=== PATIENT | female | born 1965 | race Caucasian/White ===

== ENCOUNTER 2021-12-12 17:39 | Outpatient (CLI) | payer BC, SELFPAY ==
--- NOTE | 2021-12-12 18:00 | CRLHL7_ITS ---
For Patients: As a result of the Century Cures Act, medical imaging exams and procedure reports are released immediately into your electronic medical record. You may view this report before your referring provider. If you have questions, please contact your health care provider. BILATERAL SCREENING MAMMOGRAM WITH COMPUTER-AIDED DETECTION AND TOMOSYNTHESIS TECHNIQUE: CC and MLO views were obtained. These mammographic images have been obtained using full-field digital technique. These mammographic images were interpreted with the benefit of computer-aided detection. Breast Tomosynthesis was used in this interpretation. COMPARISON FILM: 09/08/20, 09/08/19, 07/03/18 FINDINGS: There are scattered areas of fibroglandular density IMPRESSION: There is no radiographic evidence for malignancy. ASSESSMENT: BI-RADS Category 1: Negative RECOMMENDATION: Routine screening mammogram in 1 year. A lay language report of this examination will be provided to the patient. William Barrow M.D. Diagnostic/Musculoskeletal Radiologist [email or web address] LISA/neda Transcribed: 2:10 p.m. PT/Dictated by: William Barrow MD @ 12/13/2021 8:16:00 AM (Electronically Signed)
== END 2021-12-12 17:40 | disposition home or self-care (01) ==
LOC: MAMMO 17:40
PROVIDERS: Visit Provider Obstetrics & Gynecology
DX: Z12.31 Encounter for screening mammogram for malignant neoplasm of breast (principal)
CPT/HCPCS: 77063; 77067

== ENCOUNTER 2024-01-16 08:51 | Outpatient (CLI) | payer BC, SELFPAY ==
--- OUTSIDE RECORDS SUMMARY | 2024-01-16 08:55 | XMS_ITS | Clinical Summary ---
Author Organization [facility] Address [address] [place] [address] Care Team Providers Care Nurse Care Manager Name Role Phone Tevin Barba P.A.-C. Primary Care Provider Source Comments Patient records contain information from all sites at [facility]. For routine questions regarding patient records, call [phone] during business hours, M-F 8:00 AM - 5:00 PM Central Time. Record requests for emergency care only can be directed to [phone] at any time.[facility] Allergies Active Allergy Reactions Criticality Noted Date Comments Iodine Anxiety,Hives (Reselect Reaction),Itching,P alpitations,Rash,Sh ortness of breath (Reselect Reaction) 05/16/1992 Nitrofurantoin Macrocrystal Anaphylaxis,Anxiety ,Hives (Reselect Reaction),Itching,P alpitations,Rash,Sh ortness of breath (Reselect Reaction) Nitrofurantoin Shortness of breath (Reselect Reaction) High 02/02/2021 Neomycin-Polymyxin B-Dexameth Rash,Edema (Reselect Reaction) 06/14/2020 Shellfish Containing Products Other (see comments) 06/13/2020 Anxiety, hives, itching,rash, shortness of breath Shellfish Derived Other (see comments) 06/13/2020 Anxiety, hives, itching,rash, shortness of breath Medications Medication Sig Dispensed Refills Start Date End Date Status azelaic acid (FINACEA) 15 % gel 01/18/2022 Active ibuprofen (ADVIL,MOTRIN) 200 mg tablet Take 600 mg by mouth. 01/26/2022 Active ketoconazole (NIZORAL) 2 % cream WASH TO AFFECTED AREA APPLY TO AFFECTED AREA OF BODY TWICE A DAY UNTIL RESOLVED 05/08/2022 Active clobetasoL (TEMOVATE) 0.05 % ointment APPLY TO VAGINAL AREA 1-2X DAILY FOR UP TO 2 WEEKS PER MONTH NEEDED 08/07/2022 Active DME CPAPIndications:Apne a Sleep Obstructive DME Order. ResMed S11 1 each 11 11/06/2022 Active lisinopriL 5 mg tablet Take 1 tablet (5 mg total) by mouth daily. 90 tablet 3 10/31/2023 Active famotidine (Pepcid) 40 mg tablet Take 1 tablet (40 mg total) by mouth 2 (two) times a day. 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 If stable, she could have follow-up thereafter every 12 months. 2. She should work with her local physician for a baseline 24 urine calcium measurement. If elevated, consultation with Nephrology would be indicated regarding treatment of hypercalciuria to avoid risk of kidney stone disease going forward. As above, hypercalciuria would be an indication for consideration of parathyroidectomy. 3. I discussed with her that her bone mineral density is unremarkable, with lowest bone mineral density T-score -1.0 which is at the crossroads of normal versus beginning of osteopenia. Recommended a repeat bone mineral density in 2 years time. Hypertension Essential Primary 01/02/2017 Varicose Vein Lower Extremity With Pain Bilatera l 10/06/2014 Gastroesophageal Reflux Disease Without Esophagi tis 12/23/2013 Apnea Sleep Obstructive 12/22/2013 Bundle Branch Block Bifascicular 10/06/2013 Resolved Problems Problem Noted Date Diagnosed Date Resolved Date Nodule Thyroid 11/17/2019 10/31/2023 Abdominal Pain 04/02/2019 05/24/2021 Hypercalcemia 03/03/2019 10/31/2023 Hypertension Essential Primary 10/06/2013 02/14/2018 Overview (09/04/2016): Hypertension HTN NOS Graves' Disease 10/06/2013 10/31/2023 Pityriasis Versicolor 01/21/20122018 Encounters Date Type Department Care Team Description 01/06/2024 4:00 PM CDT Nurse Only Department of Family Medicine, [facility], in [place], [place] [address] [place] [address] Ruth Salgado L.P.N. Nurse Visit (Nurse only 2nd Hep B vaccine) 12/02/2023 Orders Only Department of Family Medicine, [facility], [place], [place] [address] [place] [address] Marta Rome P.A.-C., M.S. Exposure Rabies (Primary Dx) 10/31/2023 8:28 AM CDT - 10/31/2023 11:59 PM CDT Hospital Encounter Department of Laboratory Medicine in [address] [address] Tevin Barba P.A.-C. Hypertension Essential Primary; Screening Examination Diabetes Mellitus; Encounter For Screening For Cardiovascular Disorders Discharge Disposition: Home or Self Care 10/31/2023 8:00 AM CDT Office Visit Department of Family Medicine, [facility], in [address] [address] Tevin Barba P.A.-CYenny Apnea Sleep Obstructive (Primary Dx); Hyperparathyroidism (HCC); Gastroesophageal Reflux Disease Without Esophagitis; Hypertension Essential Primary; Polyp Stomach; Polyp Colon; General Medical Examination Adult; Screening Examination Diabetes Mellitus; Encounter For Screening For Cardiovascular Disorders 10/24/2023 7:47 AM CDT - 10/24/2023 11:59 PM CDT Hospital Encounter Department of Laboratory Medicine in [address] [address] Tevin Barba P.A.-C. Monitoring For Therapeutic Drug Therapy Discharge Disposition: Home or Self Care from Last 3 Months Immunizations Name Administration Dates Next Due DT, Pediatric 06/04/2005 HepB Adult (HEPLISAV-B) 01/06/2024,10/31/2023 Influenza, Injectable, Quadrivalent 12/31/2019 RZV (SHINGRIX) 06/08/2021,12/15/2020 Rabies (Imovax) 12/20/2022, 3,12/09/2022,2022 Tdap 08/30/2014 influenza trivalent vaccine (6 months and older)(PF) 01/06/2024 influenza vaccine quad (FLUZONE/FLUARIX) (6 months and older)(PF) 02/16/2022,03/13/2021,06/15/2019 Family History Medical History Relation Name Comments Prostate cancer Father Dick Kim Hyperlipidemia Mother Shaina Kim Hypertension Mother Shaina Kim Psoriasis Mother Shaina Kim Hyperlipidemia Sister Mirta Alvarez Relation Name Status Comments Father Dick Kim Mother Shaina Alvarez Social History Tobacco Use Types Packs/Day Years Used Date Smoking Tobacco: Never Smokeless Tobacco: Never Tobacco Cessation:Counseling Given: Not Answered Alcohol Use Standard Drinks/Week Comments Yes 1 (1 standard drink = 0.6 oz pur e alcohol) social Humiliation, Afraid, Rape, and Kick questionnair e Answer Date Recorded Within the last year, have y ou been afraid of your partner or ex-partner? No 05/22/2021 Within the last year, have y ou been humiliated or emotionally abused in other ways by your partner or ex-partner? No Within the last year, have y ou been kicked, hit, slapped, or otherwise physically hurt by your partner or ex-partner? No 05/22/2021 Within the last year, have y ou been raped or forced to have any kind of sexual activity by your partner or ex-partner? No 05/22/2021 Social Connection and Isolat ion Panel [NHANES] Answer Date Recorded In a typical week, how many times do you talk on the phone with family, friends, or neighbors? More than three times a week 05/22/2021 How often do you get togethe r with friends or relatives? Three times a week 05/22/2021 How often do you attend chur or latter-day services? 1 to 4 times per year 05/22/2021 Do you belong to any clubs o r organizations such as bahai groups, unions, fraternal or athletic groups, or school groups? Yes 05/22/2021 How often do you attend meet ings of the clubs or organizations you belong to? More than 4 times per year 05/22/2021 Are you , , di vorced, , never , or living with a partner? 05/22/2021 AUDIT-C Answer Date Recorded Q1: How often do you have a drink containing alc ohol? Monthly or less 05/22/2021 Q2: How many drinks containi ng alcohol do you have on a typical day when you are drinking? 1 or 2 05/22/2021 Q3: How often do you have si x or more drinks on one occasion? Never 05/22/2021 Overall Financial Resource Strain (CARDIA) Answe r Date Recorded How hard is it for you to pa y for the very basics like food, housing, medical care, and heating? Not hard at all 01/15/2023 PHQ-2 Answer Date Recorded PHQ-2 Score 0 10/31/2023 [employer] [facility]ational Stress Questionnaire Answer Date Recorded Do you feel stress - tense, restless, nervous, or anxious, or unable to sleep at night because your mind is troubled all the time - these days? Only a little 05/22/2021 Exercise Vital Sign Answer Date Recorde d On average, how many days pe r week do you engage in moderate to strenuous exercise (like a brisk walk)? 1 day 01/15/2023 On average, how many minutes do you engage in exercise at this level? 30 min 01/15/2023 Hunger Vital Sign Answer Date Recorded Within the past 12 months, y ou worried that your food would run out before you got the money to buy more. Never true 01/16/20 23 Within the past 12 months, t he food you bought just didn't last and you didn't have money to get more. Never true 01/15/2023 PRAPARE - Transportation Answer Date Re corded In the past 12 months, has l ack of transportation kept you from medical appointments or from getting medications? No 06/2022 In the past 12 months, has l ack of transportation kept you from meetings, work, or from getting things needed for daily living? No 01/15/2023 Nutrition Answer Date Recorded On average, how many serving s of fruits and vegetables do you eat per day (serving size is equal to 1 cup or approximately the size of a tennis ball)? 3-5 01/15/2023 Dental Answer Date Recorded Dental: Regular Dentist Yes 05/22/19 Employment Answer Date Recorded Employment status Employed and actively working without restrictions 01/15/2023 Housing Stability Answer Date Recorded What is your living situation today? [facility] have [facility] to live 01/15/2023 Education Answer Date Recorded What is the highest level of school you have completed or the highest degree you have received? Master's degree (e.g., MA, MS, Chip, MEd, MATERIALS INSPECTOR, DARYL) 03/03/2019 Sex and Gender Information Value Date Recorded Sex Assigned at Female 05/22/2017 7:48 AM UPWARD BOUND DIRECTOR Gender Identity Female 05/22/2017 7:48 AM UPWARD BOUND DIRECTOR Sexual Orientation Straight 03/07/2021 12 :04 PM UPWARD BOUND DIRECTOR Last Filed Vital Signs Vital Sign Reading Time Taken Comments Blood Pressure 133/89 10/31/2023 7:41 AM CDT Pulse 70 10/31/2023 7:41 AM CDT Temperature 36.2 ??C (97.2 ??F) 10/31/2023 7:41 AM CD T Respiratory Rate 16 10/31/2023 7:41 AM CDT Oxygen Saturation 96% 04/02/2023 7:38 AM UPWARD BOUND DIRECTOR Inhaled Oxygen Concentration - - Weight 93.6 kg (206 lb 3.9 oz) 10/31/2023 7:41 A M CDT Height 162.7 cm (5' 4.06) 10/31/2023 7:41 AM CD T Body Mass Index 35.34 10/31/2023 7:41 AM CDT Plan of Treatment Health Maintenance Due Date Last Done Comments CT Colonography 1965 Cologuard 1965 HIV Screening 1965 Hepatitis C Screening 1965 Mammogram 07/04/2019 07/03/2018 (Perf ormed elsewhere), 07/02/2017 (Performed elsewhere), 11/27/2013 (Performed elsewhere) COVID-19 Vaccine ( season) 2023 03/15/2021, 07/21/2020, 06/23/2020 DTaP,Tdap,and Td Vaccines (3 - Td or Tdap) 08/30/2024 08/30/2014, 06/04/2005 Creatinine Level (Kidney Function Test) 10/23/2024 10/24/2023, 10/04/2022, 01/19/2022, Additional history exists Potassium Level 10/23/2024 10/24/2023, 09/14, 01/19/2022, Additional history exists Sodium Level 10/23/2024 10/24/2023, 09/14, 01/19/2022, Additional history exists Office Visit for Blood Pressure Check / Re-check 10/30/2024 10/31/2023 Visit: Chronic Disease, age 18+ 10/30/2024 10/31/2023 Cervical Cancer Screening 09/07/20262021, 11/28/2020 (Performed elsewhere), 09/12/2016 (Performed elsewhere), Additional history exists Fasting Glucose for Diabetes Screening 10/23/2026 10/24/2023, 10/04/2022, 01/19/2022, Additional history exists Colonoscopy 03/27/2028 03/27/2023, 03/15, 02/02/2016, Additional history exists Colorectal Cancer Surveillance 03/27/2028 Lipid (Cholesterol) Screening 10/30/2028 10/31/2023, 10/04/2022, 05/22/2021, Additional history exists Zoster Vaccines Completed 06/08/2021, 12/15/2020 Depression Screening (Annual PHQ-2) Completed 10/31/2023, 10/31/2023 Hepatitis B Vaccines Completed 01/06/2024, 10/31/19 Influenza Vaccine Completed 01/06/2024, , 03/13/2021, Additional history exists Pneumococcal vaccine (0-64 years) Aged Out No longer eligible based on patient's age to complete this topic Medical Devices Implanted Type Area Bobbin Coil Winder Device Identifier Shelf Expiration Date Model / Serial / Lot Clp [facility] - [id number] Implanted:Qty : 1 on 06/26/2019 by Vincent Leahy M.D., Ph.D. at [facility] Colon/Gonda Hardware e.g. pins/screws /rods [employer] [id number] 05/20/2021 [id number] / / [id number] Description:Gastric polpecto my site Clp [facility]sp [facility] - [id number] Implanted:Qty : 1 on 06/26/2019 by Vincent Leahy M.D., Ph.D. at [facility] Colon/Gonda Hardware e.g. pins/screws /rods [employer] [id number] 10/18/2021 [id number] / / [id number] Description:Gastric polpecto my site Mesh Or Patch Mesh or Patch Bladder Description:Bladder sling Procedures Procedure Name Priority Date/Time Associated Diagnosis Comments THYROID FUNCTION CASCADE, S Routine 10/31/2023 8:40 AM CDT Hypertension Essential Primary Screening Examination Diabetes Mellitus Encounter For Screening For Cardiovascular Disorders LIPID PANEL, S Routine 10/31/2023 8:40 AM CDT Hypertension Essential Primary Screening Examination Diabetes Mellitus Encounter For Screening For Cardiovascular Disorders BASIC METABOLIC PANEL, S/P Routine 10/24/2023 7:56 AM CDT Monitoring For Therapeutic Drug Therapy COLONOSCOPY RESTRICTED Routine 03/27/2023 7:38 AM UPWARD BOUND DIRECTOR Polyp Stomach Gastroesophageal Reflux Disease Without Esophagitis from Last 3 Months or Most Recently Relevant to Health Maintenance Results * (ABNORMAL) Lipid Panel (10/31/2023 8:40 AM CDT) Triglycerides 135 mg/dL 10/31/2023 1:39 PM CDT OWAT Comment: ----REFERENCE VALUE---- Normal: <150 mg/dL Borderline High: 150-199 mg/dL High: 200-499 mg/dL Very High: > or =500 mg/dL Cholesterol, Total 219(H) mg/dL 2023 1:39 PM CDT OWAT Comment: ----REFERENCE VALUE---- Desirable: < 200 mg/dL Borderline High: 200 - 239 mg/dL High: > or = 240 mg/dL Cholesterol, LDL, Calculated 149(H) mg/dL 10/31/2023 1:39 PM CDT OWAT Comment: ----REFERENCE VALUE---- Desirable: <100 mg/dL Above Desirable: 100-129 mg/dL Borderline High: 130-159 mg/dL High: 160-189 mg/dL Very High: >=190 mg/dL ----ADDITIONAL INFORMATION---- LDL cholesterol calculated using the Galloway/NIH equation. Cholesterol, HDL 46(L) >=50 mg/dL 10/31/19 1:39 PM CDT OWAT Cholesterol, Non-HDL, Calculated 173(H) mg/dL 10/31/2023 1:39 PM CDT OWAT Comment: ----REFERENCE VALUE---- Desirable: <130 mg/dL Above Desirable: 130-159 mg/dL Borderline High: 160-189 mg/dL High: 190-219 mg/dL Very High: > or =220 mg/dL Fasting (8 HR or more) Yes 10/31/2023 8:40 AM CDT OWAT Blood (Blood, Venous) 10/31/2023 8:40 AM CDT 10/31/2023 12:47 PM CDT Tevin Barba P.A.-C. LAB BLOOD ADD- ON [facility] [address] [place] [address], [facility] OWAT [facility] in [place] [address] [place] [address] * Thyroid Function Beebe (10/31/2023 8:40 AM CDT) TSH, Sensitive 1.5 0.3 - 4.2 mIU/L 10/31/2023 1:29 PM CDT OWAT Blood (Blood, Venous) 10/31/2023 8:40 AM CDT 10/31/2023 12:47 PM CDT Tevin Barba P.A.-C. LAB BLOOD ADD- ON [facility] [address] [place] [address], [place] OWAT [facility] in [place] [address] [place] [address] * (ABNORMAL) Basic Metabolic Panel (10/24/2023 7:56 AM CDT) Potassium, P 4.8 3.6 - 5.2 mmol/L 10/24/2023 1:30 PM CDT OWAT Sodium, P 144 135 - 145 mmol/L 10/24/2023 1:30 PM CDT OWAT Chloride, P 108(H) 98 - 107 mmol/L 10/24/2023 1:30 PM CDT OWAT Bicarbonate, P 27 22 - 29 mmol/L 10/24/2023 1:30 PM CDT OWAT Anion Gap, P 9 7 - 15 10/24/2023 1:30 PM CDT OWAT BUN (Blood Urea Nitrogen), P 17 6 - 21 mg/dL 10/24/2023 1:30 PM CDT OWAT Creatinine 0.80 0.59 - 1.04 mg/dL 10/24/2023 1:30 PM CDT OWAT Estimated GFR (eGFR) 85 >=60 mL/min/BSA 10/24/2023 1:30 PM CDT OWAT Comment: Estimated GFR calculated using the 2020 CKD_EPI creatinine equation. Calcium, Total, P 9.7 8.6 - 10.0 mg/dL 10/24/2023 1:30 PM CDT OWAT Glucose, P 107 70 - 140 mg/dL 10/24/2023 1:30 PM CDT OWAT Blood (Blood, Venous) 10/24/2023 7:56 AM CDT 10/24/2023 12:55 PM CDT Tevin L Roethler P.A.-C. LAB BLOOD ADD- ON [facility] [address] [place] [address], [place] OWAT [facility] in [place] [address] [place] [address] from Last 3 Months or Most Recently Relevant to Health Maintenance Care Teams Nurse Care Manager Relationship Specialty Start Date End Date Tevin Barba P.A.-C. [address] [place] [phone] PCP - General Family Medicine 12/25/21
--- OUTSIDE RECORDS SUMMARY | 2024-01-16 08:55 | XMS_ITS | Clinical Summary ---
Author Organization [facility] Address [place], [place] [address] Care Team Providers Care Cafe Lead Name Role Phone Tevin Barba Unavailable [phone] Tevin Barba Primary Care Provider [phone] Allergies Active Allergy Reactions Criticality Noted Date Comments Iodine Respiratory Distress 05/06/2015 Nitrofurantoin Shortness Of Breath 08/26/2004 Medications Medication Sig Dispensed Refills Start Date End Date Status hydrochlorothiazide (HCTZ) 25 mg tablet Take 25 mg by mouth once daily. Active omeprazole (PRILOSEC) 10 mg capsule Take 10 mg by mouth once daily before a meal. Active Active Problems Problem Noted Date Diagnosed Date EDI 12/15/2013 AHI-16 12/22/2013 Esophageal reflux 08/26/2004 Allergic rhinitis, cause unspecified 08/26/2004 Family History Medical History Relation Name Comments Cancer-prostate Father Metastisis t o bone GI Disease Mother Pancreatitis fr om gall stones Relation Name Status Comments Father Mother Social History Tobacco Use Types Packs/Day Years Used Date Smoking Tobacco: Never Alcohol Use Standard Drinks/Week Comments Yes 0 (1 standard drink = 0.6 oz pur e alcohol) 2 X a month Sex and Gender Information Value Date Recorded Sex Assigned at Not on file Gender Identity Not on file Sexual Orientation Not on file Obstetrics History Last Filed Vital Signs Vital Sign Reading Time Taken Comments Blood Pressure 144/63 02/02/2016 1:41 PM CDT Pulse 86 02/02/2016 1:41 PM CDT Temperature 37 ??C (98.6 ??F) 06/20/2015 3:54 PM SHOE STITCHER 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 Respiratory Rate 18 06/20/2015 3:54 PM SHOE STITCHER ODD Oxygen Saturation 95% 02/02/2016 1:41 PM CDT Inhaled Oxygen Concentration - - Weight 98.3 kg (216 lb 11.2 oz) 06/20/2015 3:54 PM SHOE STITCHER 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 Height 162.6 cm (5' 4) 09/17/2013 12:0 0 PM CDT Body Mass Index 37.2 09/17/2013 12:00 PM CDT Plan of Treatment Health Maintenance Due Date Last Done Comments Tdap 1976 Depression screening for age 12+ 1977 HIV for age 15-65 1980 BMI (ht and wt on same day) for age 18+ 09/06/1983 Hepatitis C screening for age 18-79 09/06/1983 Tetanus booster 1985 Lipids for age 45-75 2010 Mammogram for age 45-75 2010 Zoster (shingles) series for age 50+ (1 of 2) 09/06/2015 COVID-19 vaccine series (2023- season) 2023 03/15/2021, 07/21/2020, 06/23/2020 Influenza for age 50-64 12/15/2023 Pap test for age 21-65 09/07/2024 , 09/07/2021, 09/12/2016, Additional history exists Colonoscopy through age 75 02/01/202602/01, 02/02/2016, 02/02/2016, Additional history exists Pneumococcal series for age 6-64 Aged Out No longer eligible based on patient's age to complete this topic Procedures Procedure Name Priority Date/Time Associated Diagnosis Comments HPV HIGH RISK Routine 09/07/2021 8:15 AM CDT COLONOSCOPY 02/02/2016 11:32 AM CDT from Last 3 Months or Most Recently Relevant to Health Maintenance Results * HPV HIGH RISK (09/07/2021 8:15 AM CDT) TYPE 16 Negative Negative 09/12/2021 10:40 AM CDT [facility] TYPE 18 Negative Negative 09/12/2021 10:40 AM CDT [facility] OTHER HIGH RISK TYPES Negative Negative 09/12/2021 10:40 AM CDT [facility] Other (Cervical/Vagina l) 09/07/2021 8:15 AM CDT 09/08/2021 7:14 AM CDT Narrative [facility] - 09/12/2021 10:40 AM CDT HPV types 16, 18, 31, 33, 35, 39, 45, 51, 52, 56, 58, 59, 66 and 68 DNA were undetectable or below the pre-set threshold. Methodology: Charla Portia 4800 HPV Test July Bk [facility] [facility] [address] [place] [address], [place] * COLONOSCOPY (02/02/2016 11:32 AM CDT) 02/02/2016 11:3 2 AM CDT Narrative 02/02/2016 11:32 AM CDT Patient Name: Sulema Coleyashlie ?Procedure Date: 02/02/2016 ? Gender: Female ? Date of : 1965 Admit Type: Outpatient ? Procedure: ?Colonoscopy Proceduralist: ?Jose Cruz Taveras [facility] Indications/Pre-Op Diagnosis: Screening for colorectal malignant neoplasm, ?This is the patient's first colonoscopy Medications: ?Midazolam 8 mg IV, Fentanyl 100 micrograms IV ? Procedure Description: ? The patient had risks, benefits and alternatives explained to and gave ? informed consent. The patient had a stable cardiopulmonary status and ? judged an adequate candidate for conscious sedation. ? The colonoscope was passed through the anus and advanced to the cecum, ? identified by appendiceal orifice and ileocecal valve. The colonoscopy ? was performed without difficulty. The patient tolerated the procedure ? well. The quality of the bowel preparation was good. ? Complications: ?No immediate complications. Estimated Blood Loss & Specimen: ? Estimated blood loss: none. Specimen collected - Yes and sent to ? Laboratory ? Findings: ? The perianal and digital rectal examinations were normal. ? The exam was otherwise without abnormality on direct and retroflexion ? views. ? Biopsies for histology were taken with a cold forceps from the ascending ? colon and descending colon for evaluation of microscopic colitis. ? Impressions/Post-Op Diagnosis: ? - The examination was otherwise normal on direct and retroflexion views. ? - Biopsies were taken with a cold forceps from the ascending colon and ? descending colon for evaluation of microscopic colitis. ? - Normal mucosa in the terminal ileum and in the entire examined colon. ? Biopsied. ? Recommendation: ? - Discharge patient to home. ? - Resume previous diet. ? - Continue present medications. ? - Await pathology results. ? - Repeat colonoscopy in 10 years for surveillance. ? Jose Cruz Taveras 02/02/2016 1:36:50 PM This report has been signed electronically. Note Initiated On: 02/02/2016 11:32 AM Procedure Note Jose Cruz Taveras MD - 02/02/2016 1:37 PM CDT Patient Name: Sulema Price Procedure Date: 02/02/2016 Gender: Female Date of : 1965 Admit Type: Outpatient Procedure: Colonoscopy Proceduralist: Jose Cruz Jurado One Indications/Pre-Op Diagnosis: Screening for colorectal malignant neoplasm, This is the patient's first colonoscopy Medications: Midazolam 8 mg IV, Fentanyl 100 microgramsIV Procedure Description: The patient had risks, benefits and alternatives explained to andgave informed consent. The patient had a stable cardiopulmonary status and judged an adequate candidate for conscious sedation. The colonoscope was passed through the anus and advanced to thececum, identified by appendiceal orifice and ileocecal valve. Thecolonoscopy was performed without difficulty. The patient tolerated the procedure well. The quality of the bowel preparation was good. Complications: No immediate complications. Estimated Blood Loss & Specimen: Estimated blood loss: none. Specimen collected - Yes and sent to Laboratory Findings: The perianal and digital rectal examinations were normal. The exam was otherwise without abnormality on direct and retroflexion views. Biopsies for histology were taken with a cold forceps from theascending colon and descending colon for evaluation of microscopic colitis. Impressions/Post-Op Diagnosis: - The examination was otherwise normal on direct and retroflexionviews. - Biopsies were taken with a cold forceps from the ascending colonand descending colon for evaluation of microscopic colitis. - Normal mucosa in the terminal ileum and in the entire examinedcolon. Biopsied. Recommendation: - Discharge patient to home. - Resume previous diet. - Continue present medications. - Await pathology results. - Repeat colonoscopy in 10 years for surveillance. Jose Cruz Taveras, 02/02/2016 1:36:50 PM This report has been signed electronically. Note Initiated On: 02/02/2016 11:32 AM Jose Cruz Taveras MD PROCEDURE ORD from Last 3 Months or Most Recently Relevant to Health Maintenance Advance Directives * Full Code (Latest Code Status on File) Date Activated Date Inactivated Comments 05/06/2015 12:10 PM 05/06/2015 3:42 PM * Full Code Date Activated Date Inactivated Comments 05/06/2015 10:31 AM 05/06/2015 12:10 PM Care Teams Cafe Lead Relationship Specialty Start Date End Date Tevin Barba PA PCP - General Physician Draw End Hand 07/31/21 Tevin Barba PA 09/05/13
--- OUTSIDE RECORDS SUMMARY | 2024-01-16 08:56 | XMS_ITS | Encounter Summary ---
Author Organization [facility] Address [address] [place] [address] Care Team Providers Care Director Safety Name Role Phone Tevin Barba P.A.-C. Primary Care Provider Encounter Details Date Type Department Care Team (Latest Contact Info) Description 10/24/2023 7:47 AM CDT - 10/24/2023 11:59 PM CDT Hospital Encounter Department of Laboratory Medicine in [place], [place] [address] [place] [phone] Tevin Barba P.A.-C. [address] [place] [phone] Monitoring For Therapeutic Drug Therapy Discharge Disposition: Home or Self Care Social History Tobacco Use Types Packs/Day Years Used Date Smoking Tobacco: Never Smokeless Tobacco: Never Alcohol Use Standard Drinks/Week Comments Yes 1 [...] 05/22/2021 How often do you attend chur ch or samaritan services? 1 to 4 times per year 05/22/2021 Do you belong to any clubs o r organizations such as shinto groups, unions, fraternal or athletic groups, or [...] PHQ-2 Answer Date Recorded PHQ-2 Score 0 10/04/2022 [facility] Occupat ional Health - Occupational Stress Questionnaire Answer Date [...] your living situation today? I have a [facility] place to live 01/15/2023 Education Answer Date Recorded What is the highest level of school you have completed or the highest degree you have received? 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 ResMed S11 1 each 11 11/06/2022 ibuprofen (ADVIL,MOTRIN) 200 mg tablet Take 600 mg by mouth. 01/26/2022 ketoconazole (NIZORAL) 2 % cream WASH TO AFFECTED AREA APPLY TO AFFECTED AREA OF BODY TWICE A DAY UNTIL RESOLVED 05/08/2022 calcium phosphate-vitamin D3 125 mg-3.125 mcg (125 unit) tablet,chewable Chew 2 capsules 2 (two) times a day. 10/31/2023 famotidine (Pepcid) 40 mg tablet take one tablet by mouth twice a day 180 tablet 3 10/16/2023 10/31/2023 lisinopriL (PRINIVIL,ZESTRIL) 5 mg tablet take one tablet by mouth every day 90 tablet 3 07/15/2023 10/31/2023 documented as of this encounter Plan of Treatment Not on file documented as of this encounter Procedures Procedure Name Priority Date/Time Associated Diagnosis Comments BASIC METABOLIC PANEL, S/P Routine 10/24/2023 7:56 AM CDT Monitoring For Therapeutic Drug Therapy documented in this encounter Results * (ABNORMAL) Basic Metabolic Panel (10/24/2023 7:56 [...] AM CDT 10/24/2023 12:55 PM CDT Tevin Barba P.A.-C. LAB BLOOD ADD- ON [facility] [address] [place] [address], [facility] [place] [address] [place] [address] documented in this encounter Visit Diagnoses Diagnosis Monitoring For Therapeutic Drug Therapy documented in this encounter Additional Health Concerns Assessment Noted Time PHQ-9 Depression Total Score: 0 05/24/19 18 8:14 AM ETCHER APPRENTICE PHOTOENGRAVING documented as of this encounter Care Teams Director Safety Relationship Specialty Start Date End Date Tevin Barba P.A.-C. [address] [place] [address] [place] [phone] PCP - General Family Medicine 12/25/21 documented as of this encounter
--- OUTSIDE RECORDS SUMMARY | 2024-01-16 08:56 | XMS_ITS | Encounter Summary ---
Author Organization [facility] Address [address] [place] [address] Care Team Providers Care Head Stock Operator Name Role Phone Tevin Barba P.A.-C. Primary Care Provider Reason for Visit * Reason Comments Med Refill Encounter Details Date Type Department Care Team (Late st Contact Info) Description 10/07/2023 Refill Department of Community Internal Medicine in [place], [place] [address] [place] [phone] Leslye Ramirez MPAS, P.A.-C. [address] [place] [phone] Med Refill Social History Tobacco Use Types Packs/Day Years [...] How often do you attend chur or hindu services? 1 to 4 times per year 05/22/2021 Do you belong to any clubs o r organizations such as anabaptism groups, unions, fraternal or athletic groups, or [...] Answer Date Recorded PHQ-2 Score 0 10/31/2023 [facility] of Occupat ional Health - Occupational Stress [...] money to buy more. Never true 01/16/20 Within the past 12 months, t he [...] your living situation today? I have a [facility] place to live 01/15/2023 Education Answer Date Recorded What is the highest level of school you have completed or the highest degree you have received? Master's degree (e.g., MA, MS, Chip, MEd, APPLICATION PROGRAMMER ANALYST, DARYL) 03/03/2019 Sex and Gender Information Value Date Recorded Sex Assigned at Female 05/22/2017 7:48 AM PRODUCTION DEPARTMENT SUPERVISOR Gender Identity Female 05/22/2017 7:48 AM PRODUCTION DEPARTMENT SUPERVISOR Sexual Orientation Straight 03/07/2021 12 :04 PM PRODUCTION DEPARTMENT SUPERVISOR documented as of this encounter Plan of Treatment Not on file documented as of this encounter Visit Diagnoses Diagnosis Apnea Sleep Obstructive documented in this encounter Additional Health Concerns Assessment Noted Time PHQ-9 Depression Total Score: 0 05/24/19 18 8:14 AM PRODUCTION DEPARTMENT SUPERVISOR documented as of this encounter Care Teams Head Stock Operator Relationship Specialty Start Date End Date Tevin Barba P.A.-C. [address] [facility] [place] [phone] PCP - General Family Medicine 12/25/21 documented as of this encounter
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
--- OUTSIDE RECORDS SUMMARY | 2024-01-16 08:56 | XMS_ITS | Encounter Summary ---
Author Organization [facility] Address [address] [place] [address] Care Team Providers Care Gunstock Repairer Name Role Phone Tevin Barba P.A.-C. Primary Care Provider Encounter Details Date Type Department Care Team (Latest Contact Info) Description 10/31/2023 8:28 AM CDT - 10/31/2023 11:59 PM CDT Hospital Encounter Department of Laboratory Medicine in [place], [place] [address] [place] [address] Tevin Barba PPhoebe [address] [place] [phone] Hypertension Essential Primary; Screening Examination Diabetes Mellitus; Encounter For Screening For Cardiovascular Disorders Discharge Disposition: Home or Self Care Social [...] How often do you attend chur or zoroastrian services? 1 to 4 times per year 05/22/2021 Do you belong to any clubs o r organizations such as restorationist groups, unions, fraternal or athletic groups, or [...] Answer Date Recorded PHQ-2 Score 0 10/31/2023 [facility] [place] of Occupat ional Health - Occupational Stress [...] your living situation today? I have a [facility] to live 01/15/2023 Education Answer Date Recorded What is the highest level of school you have completed or the highest degree you have received? Master's degree (e.g., MA, MS, Chip, MEd, CHILD NUTRITION ASSISTANT, DARYL) 03/03/2019 Sex and Gender Information Value Date Recorded Sex Assigned at Female 05/22/2017 7:48 AM PIANOS AND ORGANS SALESPERSON Gender Identity Female 05/22/2017 7:48 AM PIANOS AND ORGANS SALESPERSON Sexual Orientation Straight 03/07/2021 12 :04 PM PIANOS AND ORGANS SALESPERSON documented as of this encounter Medications at Time of Discharge Medication Sig Dispensed Refills Start Date End Date azelaic acid (FINACEA) 15 % gel 01/18/2022 clobetasoL (TEMOVATE) 0.05 % ointment APPLY TO VAGINAL AREA 1-2X DAILY FOR UP TO 2 WEEKS PER MONTH NEEDED 08/07/2022 DME CPAPIndications:Apnea Sleep Obstructive DME Order. ResMed S11 1 each 11 11/06/2022 famotidine (Pepcid) 40 mg tablet Take 1 tablet (40 mg total) by mouth 2 (two) times a day. 180 tablet 3 10/31/2023 ibuprofen (ADVIL,MOTRIN) 200 mg tablet Take 600 mg by mouth. 01/26/2022 ketoconazole (NIZORAL) 2 % cream WASH TO AFFECTED AREA APPLY TO AFFECTED AREA OF BODY TWICE A DAY UNTIL RESOLVED 05/08/2022 lisinopriL 5 mg tablet Take 1 tablet (5 mg total) by mouth daily. 90 tablet 3 10/31/2023 documented as of this encounter Plan of Treatment Not on file documented as of this encounter Procedures Procedure Name Priority Date/Time Associated Diagnosis Comments LIPID PANEL, S Routine 10/31/2023 8:40 AM CDT Hypertension Essential Primary Screening Examination Diabetes Mellitus Encounter For Screening For Cardiovascular Disorders THYROID FUNCTION CASCADE, S Routine 10/31/2023 8:40 AM CDT Hypertension Essential Primary Screening Examination Diabetes Mellitus Encounter For Screening For Cardiovascular Disorders documented in this encounter Results * Thyroid Function [place] (10/31/2023 8:40 AM CDT) TSH, Sensitive 1.5 0.3 - 4.2 mIU/L 10/31/2023 1:29 PM CDT OWAT Blood (Blood, Venous) 10/31/2023 8:40 AM CDT 10/31/2023 12:47 PM CDT Tevin Barba P.A.-C. LAB BLOOD ADD- ON [facility] [address] [place] [address], [facility] OWAT [facility] [address] [place] [address] * (ABNORMAL) Lipid Panel (10/31/2023 8:40 AM [...] Tevin Barba P.A.-C. LAB BLOOD ADD- ON [facility] [address] [place] [address], [facility] OW[facility] [place] [address] [place] [address] documented in this encounter Visit Diagnoses Diagnosis Hypertension Essential Primary Screening Examination Diabetes Mellitus Encounter For Screening For Cardiovascular Disorders documented in this encounter Additional Health Concerns Assessment Noted Time PHQ-9 Depression Total Score: 0 05/24/19 18 8:14 AM PIANOS AND ORGANS SALESPERSON documented as of this encounter Care Teams Gunstock Repairer Relationship Specialty Start Date End Date Tevin Barba P.A.-C. [address] [place] [address] [place] [phone] PCP - General Family Medicine 12/25/21 documented as of this encounter
--- OUTSIDE RECORDS SUMMARY | 2024-01-16 08:56 | XMS_ITS | Encounter Summary ---
Author Organization [facility] Address [address] [place] [address] Care Team Providers Care Control Valve Mechanic Name Role Phone Tevin BarbaAYenny-Dequan Primary Care Provider Reason for Visit * Reason Comments Med Refill Encounter Details Date Type Department Care Team (Late st Contact Info) Description 10/15/2023 Refill Department of Family Medicine, [facility], in [place], [place] [address] [place] [address] Tevin Barba, PYennyAYenny-CYenny [address] [place] [phone] Med Refill Social History Tobacco Use Types [...] How often do you attend chur or nondenominational services? 1 to 4 times per year 05/22/2021 Do you belong to any clubs o r organizations such as hoahaoism groups, unions, fraternal or athletic groups, or [...] Answer Date Recorded PHQ-2 Score 0 10/04/2022 [facility] of Occupat ional Health - Occupational Stress [...] your living situation today? I have a [facility] place to live 01/15/2023 Education Answer Date Recorded What is the highest level of school you have completed or the highest degree you have received? Master's degree (e.g., MA, MS, Chip, MEd, ELECTRONIC GAMING DEVICE SUPERVISOR, DARYL) 03/03/2019 Sex and Gender Information Value Date Recorded Sex Assigned at Female 05/22/2017 7:48 AM RESOLUTION EXPERT Gender Identity Female 05/22/2017 7:48 AM RESOLUTION EXPERT Sexual Orientation Straight 03/07/2021 12 :04 PM RESOLUTION EXPERT documented as of this encounter Plan of Treatment Not on file documented as of this encounter Visit Diagnoses Not on filedocumented in this encounter Additional Health Concerns Assessment Noted Time PHQ-9 Depression Total Score: 0 05/24/19 18 8:14 AM RESOLUTION EXPERT documented as of this encounter Care Teams Control Valve Mechanic Relationship Specialty Start Date End Date Tevin Barba P.A.-C. [address] [facility] [place] [phone] PCP - General Family Medicine 12/25/21 documented as of this encounter
--- OUTSIDE RECORDS SUMMARY | 2024-01-16 08:56 | XMS_ITS | Referral Summary ---
Author Organization [facility] Address [address] [place] [address] Care Team Providers Care Inspector Type Name Role Phone Tevin Barba P.A.-C. Primary Care Provider Source Comments Patient records contain information from all sites at [facility]. For routine questions regarding patient records, call [phone] during business hours, M-F 8:00 AM - 5:00 PM Central Time. Record requests for emergency care only can be directed to [phone] at any time.[facility] Encounters Date Type Department Care Team Description 01/06/2024 4:00 PM CDT Nurse Only Department of Family Medicine, [facility], in [place], [place] [address] [place] [phone] Ruth Salgado L.PYennyN. Nurse Visit (Nurse only 2nd Hep B vaccine) 12/02/2023 Orders Only Department of Family Medicine, [facility], in [place], [place] [address] [place] [phone] Marta Rome P.A.-C., M.S. Exposure Rabies (Primary Dx) 10/31/2023 8:28 AM CDT - 10/31/2023 11:59 PM CDT Hospital Encounter Department of Laboratory Medicine in [place], [place] [address] [place] [address] Tevin Barba P.A.-CYenny Hypertension Essential Primary; Screening Examination Diabetes Mellitus; Encounter For Screening For Cardiovascular Disorders Discharge Disposition: Home or Self Care 10/31/2023 8:00 AM CDT Office Visit Department of Family Medicine, [facility], in [address] [phone] Tevin Barba P.A.-CYenny Apnea Sleep Obstructive (Primary Dx); Hyperparathyroidism (HCC); Gastroesophageal Reflux Disease Without Esophagitis; Hypertension Essential Primary; Polyp Stomach; Polyp Colon; General Medical Examination Adult; Screening Examination Diabetes Mellitus; Encounter For Screening For Cardiovascular Disorders 10/24/2023 7:47 AM CDT - 10/24/2023 11:59 PM CDT Hospital Encounter Department of Laboratory Medicine in [address] [phone] Tevin Barba, P.A.-CYenny Monitoring For Therapeutic Drug Therapy Discharge Disposition: Home or Self Care from Last 3 Months Allergies Active Allergy Reactions Criticality Noted Date [...] primary hyperparathyroidism I would recommend the followin. nail expert fasting but hydrated total serum calcium at [...] Graves' Disease 10/06/2013 10/31/2023 Pityriasis Versicolor 01/21/20122018 Immunizations Name Administration Dates Next Due DT, Pediatric 06/04/2005 HepB Adult (HEPLISAV-B) 01/06/2024,10/31/2023 Influenza, Injectable, Quadrivalent 12/31/2019 RZV (SHINGRIX) 06/08/2021,12/15/2020 Rabies (Imovax) 12/20/2022, 3,12/09/2022,2022 Tdap 08/30/2014 influenza trivalent vaccine (6 months and older)(PF) 01/06/2024 influenza vaccine quad (FLUZONE/FLUARIX) (6 months and older)(PF) 02/16/2022,03/13/2021,06/15/2019 Social History Tobacco Use Types Packs/Day Years [...] week 05/22/2021 How often do you attend [facility] or mandaen services? 1 to 4 times per year 05/22/2021 Do you belong to any clubs o r organizations such as taoist groups, unions, fraternal or athletic groups, or [...] your living situation today? I have a [facility] place to live 01/15/2023 Education Answer Date Recorded What is the highest level of school you have completed or the highest degree you have received? Master's degree (e.g., MA, MS, Chip, MEd, GAS STATION SERVICE ATTENDANT, DARYL) 03/03/2019 Sex and Gender Information Value Date Recorded Sex Assigned at Female 05/22/2017 7:48 AM SAFETY DEPOSIT BOXES CUSTODIAN Gender Identity Female 05/22/2017 7:48 AM SAFETY DEPOSIT BOXES CUSTODIAN Sexual Orientation Straight 03/07/2021 12 :04 PM SAFETY DEPOSIT BOXES CUSTODIAN Last Filed Vital Signs Vital Sign Reading Time Taken Comments Blood Pressure 133/89 10/31/2023 7:41 AM CDT Pulse 70 10/31/2023 7:41 AM CDT Temperature 36.2 ??C (97.2 ??F) 10/31/2023 7:41 AM CD T Respiratory Rate 16 10/31/2023 7:41 AM CDT Oxygen Saturation 96% 04/02/2023 7:38 AM SAFETY DEPOSIT BOXES CUSTODIAN Inhaled Oxygen Concentration - - Weight 93.6 kg (206 lb 3.9 oz) 10/31/2023 7:41 A M CDT Height 162.7 cm (5' 4.06) 10/31/2023 7:41 AM CD T Body Mass Index 35.34 10/31/2023 7:41 AM CDT Plan of Treatment Not on file Medical Devices Implanted Type Area Bone Density Technician Device Identifier Shelf Expiration Date Model / Serial / Lot Clp Rsp Hmst Endo 235 - [id number] Implanted:Qty : 1 on 06/26/2019 by Vincent Leahy M.D., Ph.D. at [facility] Hardware e.g. pins/screws /rods [employer] [id number] 05/20/2021 [id number] / / [id number] Description:Gastric polpecto my site Clp Rsp Hmst Endo 235 - [id number] Implanted:Qty : 1 on 06/26/2019 by Vincent Leahy M.D., Ph.D. at [facility] Hardware e.g. pins/screws /rods [employer] [id number] 10/18/2021 [id number] / / [id number] Description:Gastric polpecto my site Mesh Or Patch [...] Therapy COLONOSCOPY RESTRICTED Routine 03/27/2023 7:38 AM SAFETY DEPOSIT BOXES CUSTODIAN Polyp Stomach Gastroesophageal Reflux Disease Without Esophagitis [...] Tevin Barba P.A.-C. LAB BLOOD ADD- ON Performing Organization Address City/[facility]/ZIP Co de Phone Number [facility] [address] [place] [address], [place] [facility] [place] [address] [place] [address] * Thyroid Function [place] (10/31/2023 8:40 AM CDT) TSH, Sensitive 1.5 0.3 - 4.2 mIU/L 10/31/2023 1:29 PM CDT [facility] Blood (Blood, Venous) 10/31/2023 8:40 AM CDT 10/31/2023 12:47 PM CDT Tevin Barba P.A.-C. LAB BLOOD ADD- ON Performing Organization Address [facility]/ZIP Co de Phone Number [facility] [address], [place] [address], [place] [facility] [place] [address] [place] [address] * (ABNORMAL) Basic Metabolic Panel (10/24/2023 7:56 [...] Tevin Barba P.A.-C. LAB BLOOD ADD- ON [facility] [address] [place] [address], [place] [facility] [facility] [place] [address] [place] [address] from Last 3 Months or Most Recently Relevant to Health Maintenance Administered Medications Care Teams Inspector Type Relationship Specialty Start Date End Date Tevin Barba P.A.-C. [address] [place] [phone] PCP - General Family Medicine 12/25/21
--- OUTSIDE RECORDS SUMMARY | 2024-01-16 08:56 | XMS_ITS | Continuity of Care Document ---
Author Organization [facility] Address [address] [place] [address] [address] [place] [address] Phone Care Team Providers Care [employer] Name Role Phone Harpreet De Jesus MD Unavailable Unavailable Procedures Procedure Date Office consultation, moderate August- 6 Advance Directives Directive Yes / No Effective Date File Name No Information Encounters Encounter Description Practice Location Reason(s) For Visit Diagnoses Date Provider Providers Copied on Encounter Office consultation, moderate [facility], [address] [place], [place] [address], [place], [address], [place] tel:[phone] [facility] No Information 6 Liza Mullins. [facility], [address] [place] [address] [address], [place], [place], [id number], [place]. tel:[phone] Referring Provider: Mabel Vines, [address], [address]. tel:[phone] Family History Family Member Type Diagnosis Age At Onset No Information Payers Payer name Insurance type Covered libertarian ID Authoriza tion(s) [employer] CI [id number] Social History Type Description Quantity Date Captured Comments Sex Female Smoking Status No Information Chief Complaint And Reason For Visit No Information Reason For Referral Reason For Referral No Information History Of Present Illness Encounter Date Complaint History Of Prese nt Illness No Information Functional Status Date Functional Assessmen t No Information Instructions Date Instruction Additional Infor mation No Information Assessments Type Assessment Date No Information Patient Care Teams Name Effective Dates (start - stop) Status Members No Information
--- OUTSIDE RECORDS SUMMARY | 2024-01-16 08:56 | XMS_ITS | Clinical Summary ---
[facility] Address [address] [place] [address] Care Team Providers Care Document Restorer Name Role Phone Unavailable Primary Care Provider Unavailabl e Source Comments You are receiving this document as you are listed as the primary care provider,follow-up provider, or the patient has been referred to you for consultation.This is in compliance with the Medicare and[facility] Cent[facility] EHR Incentive Program,which states Providers who transition their patient to another setting of careor provider of care or refers their patient to another provider of care shouldprovide summary care record for each transition of care or referral. [facility] Allergies Active Allergy Reactions Criticality Noted Date Comments Iodine Anxiety,Hives,Itchin g,Palpitations,Rash, Breathing Difficulty High 05/16/1992 Nitrofurantoin Respiratory Distress High 02/02/2021 Nitrofurantoin Macrocrystal Anaphylaxis,Anxiety, Hives,Itching,Palpit ations,Rash,Other, see comments High Shellfish-Derived Products Unknown 06/13/2020 Anxiety, hives, itching,rash, shortness of breath Medications Medication Sig Dispensed Refills Start Date End Date Status lisinopril (ZESTRIL) 10 MG tablet Take 10 mg by mouth. 05/24/2017 Active Lactobacillus (ACIDOPHILUS) Take 1 Capsule by mouth. Active lisinopril (ZESTRIL) 5 MG tablet Take 5 mg by mouth daily. 11/21/2020 Active fluconazole (DIFLUCAN) 150 MG tablet fluconazole 150 mg tablet Active B complex-ascorbic acid (AKA SURBEX-T) tablet Take 1 Tablet by mouth daily. Active acetaminophen (TYLENOL) 500 MG tablet Take 1 Tablet (500 mg) by mouth every 4 hours. Take every 4 hours for 3 days, then as needed. 100 Tablet 01/26/2022 Active ibuprofen (MOTRIN) 200 MG tablet Take 3 Tablets (600 mg) by mouth every 6 hours. Take every 6 hours for 3 days, then as needed. 100 Tablet 01/26/2022 Active bisacodyl (DULCOLAX) 5 MG enteric coated tablet Take 1 Tablet (5 mg) by mouth two times a day. While taking narcotics 20 Tablet 01/26/2022 Active azelaic acid (FINACEA) 15 % gel Apply topically every morning. 01/18/2022 Active Sulfacetamide Sodium-Sulfur 8-4 % SUSP Apply topically daily. 01/18/2022 Active traZODone (DESYREL) 50 MG tablet Take 1 Tablet (50 mg) by mouth once as needed. 03/05/2022 Active hydrOXYzine pamoate (VISTARIL) 25 MG capsule Take 1 Capsule (25 mg) by mouth at bedtime as needed. 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 Hypercalcemia 03/03/2019 Primary hypertension 01/02/2017 Obstructive sleep apnea syndrome 12/22/2013 Bifascicular block 10/06/2013 Graves' disease 10/06/2013 Gastroesophageal reflux disease without esophagi tis 08/26/2004 Allergic rhinitis 08/26/2004 Social History Tobacco Use Types Packs/Day Years Used Date Smoking Tobacco: Never Smokeless Tobacco: Never Alcohol Use Standard Drinks/Week Comments Not Asked 0 (1 standard drink = 0.6 oz pur e alcohol) 1/week Sex and Gender Information Value Date Recorded Sex Assigned at Not on file Gender Identity Not on file Sexual Orientation Not on file Last Filed Vital Signs Vital Sign Reading Time Taken Comments Blood Pressure 122/75 01/26/2022 3:30 PM CDT Pulse 79 01/26/2022 3:30 PM CDT Temperature 36.6 ??C (97.9 ??F) 01/26/2022 3:30 PM CD T Respiratory Rate 16 01/26/2022 3:30 PM CDT Oxygen Saturation 96% 01/26/2022 3:30 PM CDT Inhaled Oxygen Concentration - - Weight 89.4 kg (197 lb) 01/26/2022 10:49 AM CDT Height 162.6 cm (5' 4) 01/26/2022 10:49 AM CDT Body Mass Index 33.81 01/26/2022 10:49 AM CDT Plan of Treatment Health Maintenance Due Date Last Done Comments Cervical Cancer Screening Due 1965 Colon Cancer Screening Plan Due 1965 Hep C Screening (Preventive Services) 1965 Mammogram 1965 HIV Screening (Preventive Services) 1981 Adult Preventive Visit 09/06/1983 HepB (1) 1984 Cholesterol 2010 COVID-19 Vaccine (2023- season) 2023 03/15/2021, 07/21/2020, 06/23/2020 Influenza (#1) 2023 02/16/2022, 02/14, 12/31/2019, Additional history exists DTaP/Tdap/Td (4 - Tdap) 08/30/2024 08/31/19 15, 06/04/2005, 06/04/2005, Additional history exists Zoster/Shingles Completed 06/08/2021, 12/15/2020 HepA Aged Out No longer eligi ble based on patient's age to complete this topic Hib Aged Out No longer eligi ble based on patient's age to complete this topic IPV (Polio) Aged Out No longer eligi ble based on patient's age to complete this topic RSV Aged Out No longer eligi ble based on patient's age to complete this topic MCV4 Aged Out No longer eligi ble based on patient's age to complete this topic Pneumococcal Aged Out No longer eligi ble based on patient's age to complete this topic Medical Devices Implanted Type Area Bladder Trimmer Device Identifier Shelf Expiration Date Model / Serial / Lot Aurora Navneet Palomares 4.75x22 - [id number] Implanted:Qty: 1 on 01/26/2022 by Timothy Gutierrez MD at [facility] Left: [employer] 09/12/2025 [id number] / 0 / [id number] Advance Directives * Full Code (Latest Code Status on File) Date Activated Date Inactivated Comments 01/26/2022 1:01 PM 01/26/2022 5:41 PM
--- OUTSIDE RECORDS SUMMARY | 2024-01-16 08:56 | XMS_ITS ---
Author Organization [facility] Address [address] [place] [address] Care Team Providers Care Furnace Tapper Name Role Phone Unavailable Unavailable Unavailable Surgery Details Not on file Complications Check Surgery Details section. Procedure Estimated Blood Loss Check Surgery Details section. Procedure Findings Check Surgery Details section. Procedure Specimens Taken Check Surgery Details section.
--- OUTSIDE RECORDS SUMMARY | 2024-01-16 08:56 | XMS_ITS | Encounter Summary ---
Author Organization [facility] Address [address] [place] [address] Care Team Providers Care Bias Cutting Machine Operator Name Role Phone Tevin Barba P.A.-C. Primary Care Provider Reason for Visit * Reason Comments Nurse Visit Nurse only 2nd Hep B vaccine * Appointment Request (Routine) - Authorized Specialty Diagnoses / Procedures Referred By Contlizzette t Referred To Contact Family Medicine Referral ID Status Reason Start Date Expiration Date V isits Requested Visits Authorized [id number] Authorized 10/31/2023 10/30/2024 1 1 Encounter Details Date Type Department Care Team (Late st Contact Info) Description 01/06/2024 4:00 PM CDT Nurse Only Department of Family Medicine, [facility], in [address] [phone] Ruth Salgado, LYennyPYennyNYenny [address] [phone] Nurse Visit (Nurse only 2nd Hep B vaccine) Social History Tobacco Use Types Packs/Day Years [...] often do you attend chur ch or sikh services? 1 to 4 times per year 05/22/2021 Do you belong to any clubs o r organizations such as yarsanism groups, unions, fraternal or athletic groups, or [...] Answer Date Recorded PHQ-2 Score 0 10/31/2023 [facility] [place] of Occupat ional Health - Occupational Stress [...] your living situation today? I have a [facility] place to live 01/15/2023 Education Answer Date Recorded What is the highest level of school you have completed or the highest degree you have received? Master's degree (e.g., MA, MS, Chip, MEd, PAN HELPER, DARYL) 03/03/2019 Sex and Gender Information Value Date Recorded Sex Assigned at Female 05/22/2017 7:48 AM EXECUTIVE PASTRY CHEF Gender Identity Female 05/22/2017 7:48 AM EXECUTIVE PASTRY CHEF Sexual Orientation Straight 03/07/2021 12 :04 PM EXECUTIVE PASTRY CHEF documented as of this encounter Plan of Treatment Not on file documented as of this encounter Visit Diagnoses Diagnosis Need Vaccine Immunization Hepatitis B- Primary documented in this encounter Additional Health Concerns Assessment Noted Time PHQ-9 Depression Total Score: 0 05/24/19 18 8:14 AM EXECUTIVE PASTRY CHEF documented as of this encounter Care Teams Bias Cutting Machine Operator Relationship Specialty Start Date End Date Tevin Barba P.A.-C. [address] [facility] [place] [phone] PCP - General Family Medicine 12/25/21 documented as of this encounter
--- OUTSIDE RECORDS SUMMARY | 2024-01-16 08:56 | XMS_ITS | Encounter Summary ---
Author Organization [facility] Address [address] [place] [address] Care Team Providers Care Hvac Instructor Name Role Phone Tevin Barba P.A.-C. Primary Care Provider Encounter Details Date Type Department Care Team (Late st Contact Info) Description 12/02/2023 Orders Only Department of Family Medicine, [facility], in [place], [place] [address] [place] [phone] Marta Rome, P.A.-C., M.S. [address] [place] [phone] Exposure Rabies (Primary Dx) Social History Tobacco Use Types Packs/Day Years [...] often do you attend chur ch or uatsdin services? 1 to 4 times per year 05/22/2021 Do you belong to any clubs o r organizations such as mormonism groups, unions, fraternal or athletic groups, or [...] Answer Date Recorded PHQ-2 Score 0 10/31/2023 [facility] of Occupat ional Health - Occupational Stress [...] your living situation today? I have a [facility] place to live 01/15/2023 Education Answer Date Recorded What is the highest level of school you have completed or the highest degree you have received? Master's degree (e.g., MA, MS, Chip, MEd, RISK MANAGER, DARYL) 03/03/2019 Sex and Gender Information Value Date Recorded Sex Assigned at Female 05/22/2017 7:48 AM SHUTTLE CAR OPERATOR Gender Identity Female 05/22/2017 7:48 AM SHUTTLE CAR OPERATOR Sexual Orientation Straight 03/07/2021 12 :04 PM SHUTTLE CAR OPERATOR documented as of this encounter Plan of Treatment Not on file documented as of this encounter Visit Diagnoses Diagnosis Exposure Rabies- Primary documented in this encounter Additional Health Concerns Assessment Noted Time PHQ-9 Depression Total Score: 0 05/24/19 18 8:14 AM SHUTTLE CAR OPERATOR documented as of this encounter Care Teams Hvac Instructor Relationship Specialty Start Date End Date Tevin Barba P.A.-C. [address] [place] [phone] PCP - General Family Medicine 9/12/22 documented as of this encounter
--- NOTE | 2024-01-16 09:15 | CRLHL7_ITS ---
For Patients: As a result of the Century Cures Act, medical imaging exams and procedure reports are released immediately into your electronic medical record. You may view this report before your referring provider. If you have questions, please contact your health care provider. BILATERAL SCREENING MAMMOGRAM WITH COMPUTER-AIDED DETECTION AND TOMOSYNTHESIS TECHNIQUE: CC and MLO views were obtained. These mammographic images have been obtained using full-field digital technique. These mammographic images were interpreted with the benefit of computer-aided detection. Breast Tomosynthesis was used in this interpretation. COMPARISON FILM: 11/15/21, 09/08/20, 09/08/19. FINDINGS: There are scattered areas of fibroglandular density IMPRESSION: There is no radiographic evidence for malignancy. ASSESSMENT: BI-RADS Category 1: Negative RECOMMENDATION: Routine screening mammogram in 1 year. A lay language report of this examination will be provided to the patient. Jarrod Ohara M.D. Diagnostic Radiologist [email or web address] GABRIELA/Dictated by: Jarrod Ohara MD @ 01/16/2024 10:09:00 AM (Electronically Signed)
== END 2024-01-16 08:52 | disposition home or self-care (01) ==
LOC: MAMMO 08:53
PROVIDERS: Visit Provider Obstetrics & Gynecology
DX: Z12.31 Encounter for screening mammogram for malignant neoplasm of breast (principal)
CPT/HCPCS: 77063; 77067

== ENCOUNTER 2025-01-21 14:47 | Outpatient (CLI) | payer BC, SELFPAY ==
--- NOTE | 2025-01-21 15:00 | CRLHL7_ITS ---
For Patients: As a result of the Century Cures Act, medical imaging exams and procedure reports are released immediately into your electronic medical record. You may view this report before your referring provider. If you have questions, please contact your health care provider. INDICATION: BILATERAL SCREENING MAMMOGRAM, ASYMPTOMATIC 59Y/O FEMALE COMPARISON: 01/16/2024, 12/12/2021, 11/29/2020 TECHNIQUE: Digital mammogram in CC and MLO projections including computer-aided detection (CAD) and tomosynthesis. BREAST COMPOSITION: There are scattered areas of fibroglandular density. FINDINGS: No suspicious findings. ASSESSMENT: BI-RADS 2 Benign RECOMMENDATION: Annual screening mammogram. A lay language report of this examination will be provided to the patient. Dictated by: Jarrod Ohara MD @ 01/22/2025 09:28:59 (Electronically Signed)
== END 2025-01-21 14:48 | disposition home or self-care (01) ==
LOC: MAMMO 14:48
PROVIDERS: Visit Provider Obstetrics & Gynecology
DX: Z12.31 Encounter for screening mammogram for malignant neoplasm of breast (principal)
CPT/HCPCS: 77063; 77067